=== PATIENT | female | born 1985 | race Caucasian/White ===

== ENCOUNTER 2022-01-02 13:36 | Emergency (ER) | payer SELFPAY ==
[~2022-01-02] VITALS: Ht 170.2 cm; Wt 68.0 kg
[2022-01-02] MEDS: DEXTROSE 50% WATER 50ML SYRINGE IV ONE (14:39)
[2022-01-02 14:51] VITALS: BP 132/66
[2022-01-02 15:01] LABS: BASOPHILS % 0.7 % (0.0-2.0); EOSINOPHILS % 0.1 % (0.0-5.0); HEMATOCRIT. 40.3 % (36.0-48.0); HEMOGLOBIN. 13.8 g/dL (12.0-16.0); LYMPHOCYTES % 20.4 % (20.0-50.0); MEAN CORPUSCULAR HEMOGLOBIN 29.8 pg (28.0-32.0); MEAN CORPUSCULAR VOLUME 87.1 fL (81.0-99.0); MONOCYTES % 7.8 % (2.0-8.0); PLATELET 199 x1000/uL (130-400); RED BLOOD CELL COUNT 4.63 mill/uL (4.2-5.4); RED CELL DISTRIBUTION WIDTH 14.2 % (11.6-14.6)
[2022-01-02 15:07] LABS: CHLORIDE 107 mEq/L (98-107)
[2022-01-02 15:11] LABS: HCG SCREEN NEGATIVE
[2022-01-02 15:16] LABS: CLARITY URINE CLEAR (CLEAR); COLOR URINE YELLOW (YELLOW); KETONES URINE 4+ (NEGATIVE); LEUKOCYTE ESTERASE URINE NEGATIVE (NEGATIVE); NITRITE URINE NEGATIVE (NEGATIVE); OCCULT BLOOD URINE NEGATIVE (NEGATIVE); PROTEIN URINE 1+ (NEGATIVE); SPECIFIC GRAVITY URINE 1.027 (1.005-1.030)
[2022-01-02 15:19] LABS: ETHANOL BLOOD < 10 mg/dL
[2022-01-02 15:35] LABS: *AMPHETAMINES SCREEN URINE NEGATIVE (NEGATIVE); *BARBITURATES SCREEN URINE NEGATIVE (NEGATIVE); *BENZODIAZEPINES SCREEN URINE NEGATIVE (NEGATIVE); *COCAINE SCREEN URINE NEGATIVE (NEGATIVE); CANNABINOID URINE SCREEN NEGATIVE (NEGATIVE); METHADONE URINE SCREEN NEGATIVE (NEGATIVE); OPIATES URINE SCREEN NEGATIVE (NEGATIVE); PHENCYCLIDINE URINE SCREEN NEGATIVE (NEGATIVE)
[2022-01-02] MEDS ORDERED: KEPP500 MT (15:44)
[2022-01-02] MEDS: LEVETIRACETAM 1000MG PREMIX 100 ML IV NR (15:51)
[2022-01-02] MEDS: SODIUM CHLORIDE 0.9% 1,000 ML IV ONE (15:51)
[2022-01-02] MEDS ORDERED: KETOROLAC 15MG/ML VIAL IV ONE (17:00)
[2022-01-02] MEDS: KETOROLAC 15MG/ML VIAL IV ONE (17:08)
== END 2022-01-02 18:20 | disposition home or self-care (01) ==
LOC: ER 13:36
DX: R56.9 Unspecified convulsions (principal); E11.9 Type 2 diabetes mellitus without complications; Z20.822 Contact with and (suspected) exposure to COVID-19
CPT/HCPCS: 36415; 71045; 80053; 80305; 80320; 81003; 83605; 84484; 84703; 85025; 85379; 87426; 93005; 96365; 96375; 99285; J1885; J1953; G0480